=== PATIENT | female | born 1930 | race Two or more races ===

== ENCOUNTER → 2020-07-04 | Outpatient (CLI) | payer MEDICARE, MEDICAID ==
[~2020-07-04] MED LIST: ACETAMINOPHEN500 M3 ORAL; ACYCLOVIR400 MG ORAL; BISACODYL10 M1 RC; DOCUSATE SODIU100 MG ORAL; LANSOPRAZOLE30 MG ORAL; LINZESS145 MCG PO; MIRTAZAPINE15 M3 ORAL; TRAMADOL HCL50 MG ORAL; ZOFRAN ODT8 MG ORAL
[2020-07-04 14:51] VITALS: BP 149/93
--- NOTE | 2020-07-04 18:00 | Consultation ---
DATE OF CONSULTATION: 07/04/2020 CHIEF COMPLAINT: Constipation and abdominal pain. HISTORY OF PRESENT ILLNESS: This is an 89-year-old female with past medical history of multiple myeloma, under the care of Dr. Kate Gamble, referred to us for evaluation of severe constipation. According to the patient, she is getting Dulcolax, Colace, and Linzess 145 and no improvement. She is still having pain. She has lost her appetite because of the abdominal pain and constipation. According to her, she had a CT scan done a month ago in the hospital, which we do not have the report, and currently getting from Dr. Gamble's office. PAST MEDICAL HISTORY: 1. Multiple myeloma. 2. GERD. 3. Hypertension. 4. Constipation. PAST SURGICAL HISTORY: Hysterectomy. MEDICATIONS: Please see medication reconciliation list. FAMILY HISTORY: No family history of GI malignancy. SOCIAL HISTORY: The patient denies any tobacco, alcohol, or drug abuse. ALLERGIES: No known drug allergies. REVIEW OF SYSTEMS: Positive for abdominal pain, nausea, bloating, weight loss. PHYSICAL EXAMINATION: VITAL SIGNS: Temperature 97.6, blood pressure is 149/96, pulse is 107, respirations 20. HEENT: Normocephalic, atraumatic. Sclerae anicteric. NECK: Supple. No evidence of obvious lymphadenopathy. CARDIOVASCULAR: Tachy. Regular rate. Plus S1, S2. LUNGS: Decreased breath sounds bilaterally based on the supine exam. ABDOMEN: Bowel sounds are present. Abdomen is diffusely tender, more on the left lower quadrant. No rebound. No guarding. No peritoneal sign. EXTREMITIES: No cyanosis, no clubbing, no edema. ASSESSMENT AND PLAN: This is an 89-year-old female with multiple myeloma with low platelets. to get platelet transfusion today. She has been tried on Colace, MiraLAX, and Linzess 145 without any significant improvement. Our plan will be to obtain the records from the recent CT scan. Add Motegrity 2 mg 1 tablet p.o. daily. We are going to get more records from Dr. Gmable's office to review before the next visit. The patient is to be back here in 1 week for followup. I want to thank Dr. Kate Gamble for this kind referral. Cameron Amalia Tovar DR: BONY JOB#: [id number] CC: Kate Gamble M.D.; Fax#: [phone]
== END | disposition home or self-care (01) ==
LOC: PAN 14:06
DX: K59.00 Constipation, unspecified (principal); R10.9 Unspecified abdominal pain; K21.9 Gastro-esophageal reflux disease without esophagitis; I10 Essential (primary) hypertension; Z90.710 Acquired absence of both cervix and uterus; R63.4 Abnormal weight loss; R00.0 Tachycardia, unspecified

== ENCOUNTER 2020-08-02 09:48 | Outpatient (CLI) | payer MEDICARE, MEDICAID ==
--- NOTE | 2020-08-02 15:02 | General Progress Note ---
Assessment/Plan Assessment/Plan: 1. Multiple myeloma. 2. GERD. 3. Hypertension. 4. Constipation. combination of Linzess 290 and Motegritiy if no improvement will consider colonoscopy Subjective ROS Limited/Unobtainable: Yes Allergies: Coded Allergies: No Known Allergies (Unverified , 07/05/20) Objective General Appearance: alert EENT: normal ENT inspection Neck: supple Cardiovascular: normal rate Respiratory/Chest: decreased breath sounds Abdomen: normal bowel sounds, non tender, soft Extremities: non-tender Cameron Tovar MD Aug 02, 2020 15:02
== END 2020-08-02 13:43 | disposition home or self-care (01) ==
LOC: PAN 09:48
DX: K21.9 Gastro-esophageal reflux disease without esophagitis (principal); C90.00 Multiple myeloma not having achieved remission; I10 Essential (primary) hypertension; K59.00 Constipation, unspecified
CPT/HCPCS: 99212

== ENCOUNTER 2020-08-30 11:17 | Outpatient (CLI) | payer MEDICARE, MEDICAID ==
--- NOTE | 2020-08-30 15:14 | General Progress Note ---
Subjective ROS Limited/Unobtainable: Yes Allergies: Coded Allergies: No Known Allergies (Unverified , 07/05/20) Objective General Appearance: alert EENT: normal ENT inspection Neck: supple Cardiovascular: normal rate Abdomen: normal bowel sounds, non tender, soft Extremities: non-tender Assessment/Plan Assessment/Plan: Assessment/Plan Assessment/Plan: 1. Multiple myeloma. 2. GERD. 3. Hypertension. 4. Constipation. combination of Linzess 290 and Motegritiy (patient did not take it) if no improvement will consider colonoscopy or CT Cameron Tovar MD Aug 30, 2020 15:14
== END 2020-08-30 13:17 | disposition home or self-care (01) ==
LOC: PAN 11:17
DX: K21.9 Gastro-esophageal reflux disease without esophagitis (principal); I10 Essential (primary) hypertension; K59.00 Constipation, unspecified; C90.00 Multiple myeloma not having achieved remission
CPT/HCPCS: 99212